=== PATIENT | female | born 2000 | race Caucasian/White ===

== ENCOUNTER 2019-02-10 07:51 | Outpatient (RCR) | payer OTHER, SELFPAY ==
--- NOTE | 2019-02-10 09:10 | PTOPEVAL ---
Thank you for referring this patient to [facility]. Please review, sign, date and return this plan of care MECHE. I agree with and certify that the following plan of care is medically necessary. Referring Physician Date Admitting Provider: Attending Provider: Mike Ricardo MD Referring Provider: *PT Outpatient Evaluation Start: 02/10/19 08:06 Freq: Status: Active Protocol: Document 02/10/19 08:07 [facility] (Rec: 02/10/19 09:00 [facility] [id number]) Therapy Assessment Status Assessment Status Assessment Status Evaluation Outpatient Past Medical History Past Medical History Past Medical History Status Patient Denies Significant Past Medical History Evaluation Information Problem Diagnosis L knee pain Onset 02/02/19 Additional Evaluation Detail LEFS = 88% Subjective Information patient reports she fell and Query Text:As Reported By Patient/ injured her L knee on stairs. Family she reports she was walking out to her truck and slipped on ice falling down the steps. she reports she went to the ED this weekend - no broken bones. she reports she has not had an MRI as of this date. Prior Level of Function Comments Additional Prior Level of Function prior to her fall, patient Comments reports she was able to walk without crutches. she reports no brace wear prior to her fall. Pain Assessment Timing of Pain Assessment Timing of Pain Assessment Assessment Pain Scale Pain Scale Used Numeric (1 - 10) Self Report Pain Assessment Left Knee(s) Reported Pain Level 8 Pain Description Sharp,Stabbing Current Pain Intensity 8 Lowest Pain Intensity 6 Greatest Pain Intensity 9 Pain Aggravating Factors Changing Position Pain Relief Interventions Used By Ice,Inactivity/Rest,Medication Patient Pain Score Pain Score 8: Self Report Lower Extremity Range of Motion Knee Range of Motion Left Reason Not Measured WNL/Right Knee Flexion Range of Motion - Active 70 Knee Flexion Range of Motion - Passive 90 Knee Extension Range of Motion - Active -5 Query Text: Knee Range of Motion Limitations Pain Lower Extremity Muscle Strength Testing Hip Strength Left Reason Not Measured WNL/Right Hip Flexion Strength 4 Good Knee Strength Left Reason Not Measured WNL/Right Knee Flexion Strength
--- NOTE | 2019-05-11 07:58 | PCPTNOTE ---
05/11/19 - ms. garcia has not been to skilled PT in over 2 months. as of this date, she will be dc'd from skilled PT services and all progress towards goals will be taken from her most recent evaluation/note. NAZ
== END 2019-02-25 09:12 | disposition home or self-care (01) ==
LOC: CHSPT 07:51
PROVIDERS: Visit Provider Family Medicine
DX: M25.562 Pain in left knee (principal); S83.412A Sprain of medial collateral ligament of left knee, initial encounter
CPT/HCPCS: 97016; 97110; 97162

== ENCOUNTER 2019-07-22 13:44 | Outpatient (CLI) | payer SELFPAY | END 2019-07-22 13:45 | disposition home or self-care (01) | LOC: CHSLAB 13:53 | PROVIDERS: PCP Family Medicine; Visit Provider Family Medicine | DX: J02.9 Acute pharyngitis, unspecified (principal) | CPT/HCPCS: 87081; 87880 ==

== ENCOUNTER 2020-02-18 13:08 | Emergency (ER) | payer MEDICAID, SELFPAY ==
--- NOTE | ~2020-02-18 | CT_ITS ---
EXAMINATION: CT abdomen pelvis wo con DATE: 02/18/2020 14:12 INDICATION: Right and left lower quadrant abdominal pain TECHNIQUE: Computed tomography (CT) of the abdomen and pelvis was performed without intravenous contr ast. Automated exposure control and iterative reconstruction technique were employed. Exam dose: 475 .97 mGy-cm total exam DLP. COMPARISON: 02/09/2018 CT abdomen pelvis FINDINGS: The lung bases are clear. Normal heart size. No pericardial or pleural effusion. Small sliding hiatal hernia. The liver, gallbladder, bile ducts, spleen, pancreas, pancreatic duct, and adrenal glands and kidneys appear normal. No urinary tract calculus or hydroureteronephrosis. The urinary bladder is relatively evacuated. An IUD is noted within the uterus. The adnexal areas are unremarkable. Normal appendix. No bowel obstruction or intraperitoneal free air. Small fat-containing umbilical hernia. Included skeletal structures are unremarkable. IMPRESSION: No significant abnormality. IUD within uterus Reviewed, dictated and finalized at [facility]. Reviewed, dictated and finalized at [facility] [employer] [facility]
[2020-02-18 13:20] VITALS: BP 108/68; PULSE 85; RESP 16; TEMP 36.1; O2SAT 100
[2020-02-18 13:54] LABS: Add Urine Microscopic? YES; Appearance Urine Clear (Clear); Bilirubin Urine 1+ (Negative); Blood Urine 1+ (Negative); Color Urine Yellow (Yellow); Glucose Urine UA Negative (Negative); Hematocrit 44.4 % (35.0-49.0); Hemoglobin 14.8 g/dL (12.0-15.0); Ketones Urine Trace (Negative); Leukocyte Esterase Ur Negative (Negative); Mean Corpuscular HGB Conc 33.3 g/dL (32.0-36.0); Mean Corpuscular Hemoglobin 30.5 pg (27.0-31.0); Mean Corpuscular Volume 91.4 fL (78.0-102.0); Mean Platelet Volume 10.9 fl (9.2-11.8); Nitrate Urine Negative (Negative); Platelet Count Result 357 K/mm3 (150-420); Protein Urine Negative (Negative); Red Blood Count 4.86 M/mm3 (4.20-5.40); Red Cell Distribution Width 11.5 % (11.6-14.4); Specific Grav Ur >= 1.030 (1.010-1.020); Urobilinogen Urine 0.2 mg/dL (0.2-1.0); White Blood Count 7.6 K/mm3 (4.8-10.8)
[2020-02-18 13:58] LABS: Pregnancy On Board Control Positive; Squamous Epithelial Cell Urine Few /hpf (Few); Urine Pregnancy Test Negative; WBC Urine None seen /hpf (0-3)
[2020-02-18 13:59] LABS: Bacteria Urine 1+ /hpf; Mucus Urine Few /lpf
[2020-02-18] MEDS: ACETAMINOPHEN 500 MG TABLET 1000 MG PO (13:59)
--- NOTE | 2020-02-18 14:39 | ED.FEMALEGU ---
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 Patient has an IUD in place for the last 9 months, currently there is no fever or chills. Patient for her cramping has been taking ibuprofen. MD elicited complaint: vaginal bleeding Onset (ago): day(s) Severity: mild Quality of pain: cramping Consistency: intermittent Vaginal bleeding: scant Related Data Home Medications Medication Instructions Recorded Confirmed amitriptyline 25 mg PO HS 02/18/20 02/18/20 Allergies Allergy/AdvReac Type Severity Reaction Status Date / Time amoxicillin Allergy Unknown Verified 04/29/12 15:46 Penicillins Allergy Unknown Verified 04/29/12 15:46 Review of Systems Review of Systems: All systems reviewed & are unremarkable except as noted in HPI and below PMFSH Past Medical History Medical History Acid reflux Asthma Migraine Rubella Family History Family History Mother Diabetes mellitus Hypercholesterolemia Acute myocardial infarction Father Diabetes mellitus Hypercholesterolemia DVT (deep venous thrombosis) Sibling Family history of blood dyscrasia Social History Social History Smoking status: Never smoker Alcohol intake: never Exam Const: General: no acute distress and alert Orientation/consciousness: patient oriented x3 HENMT: Head: normal to inspection Eyes: Pupils: Equal, round and reactive pupils present Neck: Neck: normal visual inspection Chest: Chest palpation & inspection: normal inspection of the chest Resp: Effort & Inspection: normal respiratory effort Auscultation: clear to auscultation bilaterally Cardio: Rate: regular rate Rhythm: regular rhythm GI: GI Palp: Yes Soft to palpation Auscultation: normal bowel sounds Other: Mild suprapubic tenderness with palpatio Urinary Catheter: Urinary Catheter: patent and draining Back/Spine/Pelvis: Back: no CVA tenderness Skin: General skin exam: normal color Rashes: no rashes Neuro: General: patient oriented x3, moves all extremities and no meningeal signs Psych: Mental Status: mental status grossly normal Course Course Emergency Course: reassessment of patient has improved this appears comfortable in and went over the CT scan and blood work and IUD was in place, 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 Vital Signs Vital signs: Vital Signs Temperature 36.1 C L 02/18/20 13:20 Pulse Rate 85 02/18/20 13:20 Respiratory Rate 16 02/18/20 13:20 Blood Pressure 108/68 02/18/20 13:20 Pulse Oximetry 100 02/18/20 13:20 Temperature 36.1 C L 02/18/20 13:20 Pulse Rate 85 02/18/20 13:20 Respiratory Rate 16 02/18/20 13:20 Blood Pressure 108/68 02/18/20 13:20 Pulse Oximetry 100 02/18/20 13:20 MDM - Female Genitourinary Lab Data Result diagrams: 02/18/20 13:47 Labs: Lab Results 02/18/20 02/18/20 Range/Units 13:47 13:47 WBC 7.6 (4.8-10.8) K/mm3 RBC 4.86 (4.20-5.40) M/mm3 Hgb 14.8 (12.0-15.0) g/dL Hct 44.4 (35.0-49.0) % MCV 91.4 (78.0-102.0) fL MCH 30.5 (27.0-31.0) pg MCHC 33.3 (32.0-36.0) g/dL RDW 11.5 L (11.6-14.4) % Plt Count 357 (150-420) K/mm3 MPV 10.9 (9.2-11.8) fl Urine Color Yellow
[2020-02-18 14:47] VITALS: RESP 15; O2SAT 100
== END 2020-02-18 14:48 | disposition home or self-care (01) ==
PROVIDERS: Emergency Provider Emergency Medicine; PCP Family Medicine
DX: R10.9 Unspecified abdominal pain (principal)
CPT/HCPCS: 36415; 74176; 81001; 81025; 85027; 99282; 99284

== ENCOUNTER 2020-04-12 16:18 | Outpatient (CLI) | payer BC, SELFPAY ==
[2020-04-12 17:10] LABS: SARS-CoV-2 Ag Negative (Negative)
[2020-04-14 01:27] LABS: SARS-CoV-2 RNA PCR Negative
== END 2020-04-12 16:19 | disposition home or self-care (01) ==
LOC: CHSLAB 16:21
PROVIDERS: PCP Family Medicine; Visit Provider Family Medicine
DX: J00 Acute nasopharyngitis [common cold] (principal); Z20.822 Contact with and (suspected) exposure to COVID-19
CPT/HCPCS: 87426; C9803; U0003; U0005

== ENCOUNTER 2020-09-13 13:14 | Outpatient (CLI) | payer BC, SELFPAY ==
[2020-09-13 13:34] LABS: Basophils Absolute Auto 0.05 K/mm3 (0.00-0.10); Basophils Percent Auto 0.6 % (0.0-1.0); Eosinophils Absolute Auto 0.05 K/mm3 (0.02-0.50); Eosinophils Percent Auto 0.6 % (1.0-6.0); Hematocrit 40.2 % (35.0-49.0); Hemoglobin 13.8 g/dL (12.0-15.0); Immature Granulocyte Absolute 0.03 K/mm3 (0.00-0.00); Immature Granulocyte Percent A 0.3 % (0.0-0.0); Lymphocytes Percent Auto 25.2 % (18.0-42.0); Mean Corpuscular HGB Conc 34.3 g/dL (32.0-36.0); Mean Corpuscular Hemoglobin 30.9 pg (27.0-31.0); Mean Corpuscular Volume 90.1 fL (78.0-102.0); Mean Platelet Volume 11.4 fl (9.2-11.8); Monocytes Absolute Auto 0.64 K/mm3 (0.10-0.90); Monocytes Percent Auto 7.3 % (2.0-11.0); Neutrophils Absolute Auto 5.8 K/mm3 (1.7-7.2); Platelet Count Result 339 K/mm3 (150-420); Red Blood Count 4.46 M/mm3 (4.20-5.40); Red Cell Distribution Width 11.6 % (11.6-14.4); White Blood Count 8.7 K/mm3 (4.8-10.8)
[2020-09-13 13:35] LABS: Add Urine Microscopic? NO; Appearance Urine Clear (Clear); Bilirubin Urine Negative (Negative); Blood Urine Negative (Negative); Color Urine Light Yellow (Yellow); Glucose Urine UA Negative (Negative); Ketones Urine Negative (Negative); Leukocyte Esterase Ur Negative (Negative); Nitrate Urine Negative (Negative); Protein Urine Negative (Negative); Urobilinogen Urine 0.2 mg/dL (0.2-1.0)
[2020-09-13 13:38] LABS: Pregnancy On Board Control Positive; Urine Pregnancy Test Negative
[2020-09-13 14:12] LABS: Alanine Aminotransferase 27 U/L (14-59); Albumin Level 3.8 g/dL (3.4-5.0); Alkaline Phosphatase 69 U/L (46-116); Amylase 49 U/L (25-115); Anion Gap 13 mmol/L (8-16); Aspartate Amino Transferase 16 U/L (15-37); Bilirubin,Total 0.4 mg/dL (0.00-1.00); Blood Urea Nitrogen 12 mg/dL (7-18); Calcium 9.2 mg/dL (8.5-10.1); Carbon Dioxide 25 mmol/L (21-32); Chloride 102 mmol/L (98-108); Estimated Glomerular Filt Rate > 60; Glucose 93 mg/dL (70-99); Lipase 65 U/L (73-393); Osmolality Calculated 289 mOsm/kg (285-295); Potassium 4.1 mmol/L (3.5-5.1); Sodium 140 mmol/L (136-145); Total Protein 6.9 g/dL (6.4-8.2)
== END 2020-09-13 13:15 | disposition home or self-care (01) ==
LOC: CHSLAB 13:19
PROVIDERS: PCP Family Medicine; Visit Provider Family Medicine
DX: R11.0 Nausea (principal); R19.7 Diarrhea, unspecified; R25.2 Cramp and spasm
CPT/HCPCS: 36415; 80053; 81003; 81025; 82150; 83690; 83735; 85025

== ENCOUNTER 2021-07-12 13:26 | Outpatient (CLI) | payer BC, SELFPAY ==
[2021-07-12 14:17] LABS: Influenza A QL RT-PCR Negative (Negative); Influenza B QL RT-PCR Negative (Negative); SARS-CoV-2 RNA PCR Negative (Negative)
== END 2021-07-12 13:27 | disposition home or self-care (01) ==
LOC: CHSLAB 13:29
PROVIDERS: PCP Family Medicine; Visit Provider Family Medicine
DX: J06.9 Acute upper respiratory infection, unspecified (principal); Z20.822 Contact with and (suspected) exposure to COVID-19
CPT/HCPCS: 87502; C9803; U0003; U0005